=== PATIENT | male | born 1980 | race Caucasian/White ===

== ENCOUNTER 2017-10-11 14:42 | Emergency (ER) | payer MEDICAID ==
[~2017-10-11] VITALS: Ht 180.3 cm; Wt 85.9 kg
[~2017-10-11 14:42] MED LIST: AMOX1TAB64 PO; ARIP10TA33 PO; MULT-750 PO; NICO-487 TD; OXYC-302 PO; SULF1TAB24 PO; TEMA15CA6 PO
[2017-10-11 14:44] VITALS: BP 121/72
[2017-10-11] MEDS ORDERED: IBUPROFEN 200 MG TABLET PO ONE (16:00)
[2017-10-11] MEDS ORDERED: BACITRACIN ZINC OINT 500U/GM, 0.9 GM ONE ×2 (16:03→16:12)
[2017-10-11] MEDS ORDERED: IBUPROFEN 200 MG TABLET ONE (16:03)
== END 2017-10-11 16:18 | disposition home or self-care (01) ==
LOC: ED 16:12
DX: L24.3 Irritant contact dermatitis due to cosmetics (principal)
CPT/HCPCS: 99283